=== PATIENT | male | born 1980 | race Caucasian/White ===

== ENCOUNTER → 2023-07-08 09:57 | Outpatient (REF) | payer OTHER, SELFPAY | LOC: PAVMRI 09:57 | PROVIDERS: ATTENDING PHYSICIAN Physical Medicine & Rehabilitation; FAMILY PHYSICIAN Emergency Medicine | DX: M25.511 Pain in right shoulder (principal); M75.111 Incomplete rotator cuff tear or rupture of right shoulder, not specified as traumatic; M75.51 Bursitis of right shoulder; M75.21 Bicipital tendinitis, right shoulder | CPT/HCPCS: 73221 ==

== ENCOUNTER → 2023-08-27 16:23 | Outpatient (REF) | payer OTHER, SELFPAY | LOC: RAD 16:23 | PROVIDERS: ATTENDING PHYSICIAN Physician Assistant Medical | DX: M25.572 Pain in left ankle and joints of left foot (principal); M79.672 Pain in left foot | CPT/HCPCS: 73610; 73630 ==

== ENCOUNTER → 2024-10-27 14:16 | Outpatient (REF) | payer OTHER, SELFPAY | LOC: RAD 14:16 | PROVIDERS: ATTENDING PHYSICIAN Physician Assistant Medical | DX: R10.84 Generalized abdominal pain (principal) | CPT/HCPCS: 74177; Q9967 ==

== ENCOUNTER 2024-12-18 06:13 | Day surgery (SDC) | payer OTHER, SELFPAY | END 2024-12-18 10:02 | disposition home or self-care (01) | LOC: GI 06:13 | PROVIDERS: ATTENDING PHYSICIAN Internal Medicine Gastroenterology | DX: R93.3 Abnormal findings on diagnostic imaging of other parts of digestive tract (principal); K64.8 Other hemorrhoids; K57.30 Diverticulosis of large intestine without perforation or abscess without bleeding; R12 Heartburn; K31.89 Other diseases of stomach and duodenum; K22.89 Other specified disease of esophagus; D12.3 Benign neoplasm of transverse colon | CPT/HCPCS: 45385; 43239; 88305; 88342 ==